=== PATIENT | female | born 1965 | race Caucasian/White ===

== ENCOUNTER → 2016-05-12 | Outpatient (CLI) | payer OTHER ==
[~2016-05-12] MED LIST: CALCIUM500 MG PO; CARAFATE1 G1 PO; CYMBALTA60 MG; DAYPRO600 M1 PO; ESSENTIAL DAIL1 EACH PO; FLAGYL500 MG PO; FLEXERIL10 MG; FLEXERIL5 MG PO; IBUPROFEN 30 M800 MG; IMITREX100 MG PO; INDERAL LA120 M1 PO; INDERAL80 MG PO; LASIX40 MG PO; LEVOTHYROXIN0.025 MG PO; LIPITOR20 MG PO; LISINOPRIL10 M1 PO; MOTRIN800 MG PO; PREMARIN0.625 MG; PRILOSEC10 MG PO; TOPAMAX50 MG PO; TRAMADOL HCL50 MG PO; TYLENOL W/CODEI1 TA2 PO; VICODIN 500 MG-1 TAB PO; WELLBUTRIN75 MG PO; XANAX0.25 MG PO; ZOFRAN ODT4 MG SL; ZOFRAN4 MG PO; ZOLOFT100 MG
== END | disposition home or self-care (01) ==
LOC: CARD 09:11
DX: R00.2 Palpitations (principal)

== ENCOUNTER → 2016-05-18 | Outpatient (CLI) | payer OTHER ==
[~2016-05-18] MED LIST changes: +CYCLOBENZAPRINE10 MG PO; +EC NAPROSYN500 MG PO; +TOPAMAX25 M3 PO; +TYLENOL325 M1 PO; +WELLBUTRIN XL150 MG PO; +XANAX1 MG PO
--- NOTE | ~2016-05-18 | ST ---
[place], [place] EXERCISE STRESS TEST REPORT NAME: JUSTINE MACEDO UNIT #: [id number] ROOM: DOCTOR: RAIMUNDO SANZ MD BIRTHDATE: [birth year] DOS: 05/18/2016 LEXISCAN STRESS TEST REPORT REASON FOR TEST: Palpitations and abnormal EKG. The patient had ST downsloping in V3-V5, normal sinus rhythm. PHARMACOLOGICAL STRESS TEST: The patient was given Lexiscan 0.4 mg over 10 seconds followed by nuclear injection at 40 seconds, then followed by completion of the test. Then exercise data, baseline heart rate was 70, blood pressure 120/70. Heart rate at 2 minutes was 86, blood pressure 110/68. Then EKG data, baseline rhythm was normal sinus rhythm with T-wave inversions in V3-V5. Then, stress ST changes, ST downsloping V3-V5, nondiagnostic. Then clinical symptoms, the patient had no chest pain or shortness of breath. IMPRESSION: 1. Normal Lexiscan stress test. 2. Wait for Cardiolite images for full report. RAIMUNDO SANZ MD CM:STRESS:EXERCISE STRESS TEST REPORT [id number] RAIMUNDO SANZ MD
== END | disposition home or self-care (01) ==
LOC: CARD 05-04 02:41
DX: R00.2 Palpitations (principal)

== ENCOUNTER → 2016-06-16 | Outpatient (CLI) | payer OTHER ==
[2016-06-16 11:36] LABS: BASO # 0.1 10*3/uL (0.0-0.1); BASO % 1.1 % (0.0-1.0); EOS # 0.2 10*3/uL (0.0-0.4); EOS % 2.6 % (1.0-4.0); HEMATOCRIT 39.8 % (37.0-47.0); HEMOGLOBIN 12.5 g/dl (12.0-16.0); LYMPH # 1.8 10*3/uL (1.3-4.4); LYMPH % 27.7 % (27.0-41.0); MEAN CELL VOLUME 88.4 fl (81.0-99.0); MEAN CORPUSCULAR HGB 27.8 pg (27.0-31.0); MEAN CORPUSCULAR HGB CONC 31.4 g/dl (33.0-37.0); MEAN PLATELET VOLUME 9.3 fl (9.6-12.3); MONO # 0.4 10*3/uL (0.1-1.0); MONO % 6.7 % (3.0-9.0); NEUT # 4.1 10*3/uL (2.3-7.9); NEUT % 61.7 % (47.0-73.0); PLATELET COUNT AUTOMATED 323 10*3/uL (130-400); RED CELL DISTRI WIDTH 14.7 % (0-14.5); WHITE BLOOD COUNT 6.6 10*3/uL (4.8-10.8)
== END | disposition home or self-care (01) ==
LOC: LAB 10:58
PROVIDERS: Internal Medicine Cardiovascular Disease
DX: R00.0 Tachycardia, unspecified (principal); R00.2 Palpitations; E78.01 Familial hypercholesterolemia; R94.31 Abnormal electrocardiogram [ECG] [EKG]

== ENCOUNTER → 2016-06-23 | Outpatient (CLI) | payer OTHER | END | disposition home or self-care (01) | LOC: CARD 07:19 | DX: I08.1 Rheumatic disorders of both mitral and tricuspid valves (principal); R94.31 Abnormal electrocardiogram [ECG] [EKG]; E78.01 Familial hypercholesterolemia ==

== ENCOUNTER 2016-08-30 15:38 | Emergency (ER) | payer OTHER ==
[~2016-08-30] VITALS: Ht 172.7 cm; Wt 88.5 kg
[2016-08-30 15:55] VITALS: BP 117/85
[2016-08-30] MEDS ORDERED: ROBITUSSIN AC 110 ML PO (16:29)
[2016-08-30] MEDS ORDERED: FLONASE ALLERG9.9 ML NAS ×2 (16:29→16:37)
[2016-08-30] MEDS ORDERED: CLARITIN10 MG PO ×2 (16:29→16:37)
== END 2016-08-30 17:02 | disposition home or self-care (01) ==
LOC: ED 15:38
DX: B34.9 Viral infection, unspecified (principal); R09.81 Nasal congestion; Z88.0 Allergy status to penicillin; Z79.899 Other long term (current) drug therapy

== ENCOUNTER 2017-07-17 03:49 | Emergency (ER) | payer OTHER ==
[~2017-07-17] VITALS: Ht 172.7 cm; Wt 79.4 kg
[~2017-07-17 03:49] MED LIST changes: +CLARITIN10 MG PO; +FLONASE ALLERG9.9 ML NAS; +ROBITUSSIN AC 110 ML PO
[2017-07-17 03:55] VITALS: BP 142/63
[2017-07-17] MEDS ORDERED: CIPRO500 MG PO (04:08)
[2017-07-17] MEDS ORDERED: Motrin,Rufen800 MG PO (04:08)
== END 2017-07-17 04:20 | disposition home or self-care (01) ==
LOC: ED 03:49
DX: H66.92 Otitis media, unspecified, left ear (principal); H60.92 Unspecified otitis externa, left ear; Z90.710 Acquired absence of both cervix and uterus; J02.9 Acute pharyngitis, unspecified; Z79.899 Other long term (current) drug therapy; Z88.0 Allergy status to penicillin

== ENCOUNTER 2017-12-24 10:58 | Emergency (ER) | payer OTHER ==
[~2017-12-24] VITALS: Ht 170.1 cm; Wt 80.7 kg
[~2017-12-24 10:58] MED LIST changes: +ASPIRIN ADULT L81 M1 PO; +BUPROPION HCL150 M2 PO; +CIPRO500 MG PO; +FLECAINIDE ACET50 M1 PO; +INDERAL XL120 MG PO; +KLOR-CON SPRIN10 MEQ PO; -LEVOTHYROXIN0.025 MG PO; +Motrin,Rufen800 MG PO; +OMEPRAZOLE20 M2 PO; +PREMARIN0.625 M1 PO; +SYNTHROID25 MCG PO; +VITAMIN D-32000 UNIT PO; +XARE20MG PO; +ZESTORETIC 10-1 EACH PO
[2017-12-24 11:00] VITALS: BP 140/91
[2017-12-24 11:19] LABS: BILIRUBIN NEGATIVE (NEGATIVE); BLOOD NEGATIVE (NEGATIVE); CLARITY CLEAR (CLEAR); COLOR YELLOW (YELLOW); GLUCOSE NEGATIVE (NEGATIVE); KETONE NEGATIVE (NEGATIVE); LEUKO ESTERASE 1+ (NEGATIVE); NITRITE NEGATIVE (NEGATIVE); PH 6.5 (5.0-9.0); UROBILINOGEN 0.2 E.U./dl (0.2-1.0)
[2017-12-24 11:34] LABS: BACTERIA 1+; EPITHELIAL CELLS 16-20; WBC 31-40 wbc/hpf (0-5)
[2017-12-24] MEDS ORDERED: LEVOFLOXACIN500 MG PO (13:47)
[2017-12-24] MEDS ORDERED: Motrin,Rufen800 MG PO (13:47)
[2017-12-31] MEDS ORDERED: LASIX20 MG PO (19:47)
[2017-12-31] MEDS ORDERED: XANAX0.25 MG PO (19:48)
[2018-01-04] MEDS ORDERED: AVPAK AZITHROM250 M1 PO (13:08)
[2018-01-04] MEDS ORDERED: PREDNISONE10 MG PO (13:08)
== END 2017-12-24 14:08 | disposition home or self-care (01) ==
LOC: ED 10:58
PROVIDERS: Emergency Medicine
DX: N12 Tubulo-interstitial nephritis, not specified as acute or chronic (principal); K21.9 Gastro-esophageal reflux disease without esophagitis; E03.9 Hypothyroidism, unspecified; E78.5 Hyperlipidemia, unspecified; M85.80 Other specified disorders of bone density and structure, unspecified site; Z88.0 Allergy status to penicillin; Z88.8 Allergy status to other drugs, medicaments and biological substances; Z79.899 Other long term (current) drug therapy; Z79.82 Long term (current) use of aspirin

== ENCOUNTER 2018-07-16 09:32 | Emergency (ER) | payer OTHER ==
[~2018-07-16] VITALS: Ht 172.7 cm; Wt 81.6 kg
[~2018-07-16 09:32] MED LIST changes: +AVPAK AZITHROM250 M1 PO; +LASIX20 MG PO; +LEVOFLOXACIN500 MG PO; +PREDNISONE10 MG PO
[2018-07-16 09:33] VITALS: BP 123/83
[2018-07-16] MEDS ORDERED: FLONASE ALLERG9.9 ML NAS (10:00)
== END 2018-07-16 10:10 | disposition home or self-care (01) ==
LOC: ED 09:32
DX: J06.9 Acute upper respiratory infection, unspecified (principal); K21.9 Gastro-esophageal reflux disease without esophagitis; E78.5 Hyperlipidemia, unspecified; E03.9 Hypothyroidism, unspecified; M85.80 Other specified disorders of bone density and structure, unspecified site; Z79.899 Other long term (current) drug therapy; Z79.82 Long term (current) use of aspirin; Z88.0 Allergy status to penicillin; Z88.8 Allergy status to other drugs, medicaments and biological substances

== ENCOUNTER → 2019-01-08 | Outpatient (CLI) | payer OTHER ==
[~2019-01-08] MED LIST changes: +DICYCLOMINE HCL10 MG PO; +OMEPRAZOLE40 MG PO; +TOPROL XL25 MG PO
--- NOTE | ~2019-01-08 | EKG ---
[place], [place] ELECTROCARDIOGRAM REPORT NAME: JUSTINE MACEDO UNIT #: [id number] ROOM: DOCTOR: RAIMUNDO SANZ MD BIRTHDATE: [birth year] DOS: 01/12/2019 48-HOUR HOLTER REPORT NARRATIVE SUMMARY: A Holter monitor was done for 47 hours and 59 minutes. Average heart rate was 95 beats per minute. The minimum heart rate was 71 beats per minute and maximum heart rate was 146 beats per minute. Ventricular ectopic activity consisted of 8 beats of which 4 were in couplets, 2 were in single PVCs and 2 were single ventricular ectopics. The patient's rhythm included 13 hours and 55 minutes of tachycardia, the fastest episode lasted 42 minutes and maximum heart rate was 148 beats per minute. Supraventricular activity consisted of 621 beats of which 9 were in two runs, 2 were in atrial couplets and one was late beat, 609 were single PACs. The longest supraventricular run consisted of 5 beats with maximum heart rate of 133 beats per minute. The fastest supraventricular run consisting of 4 beats with maximum heart rate of 140 beats per minute. IMPRESSION: The patient does have symptomatic supraventricular tachycardia. She was symptomatic when her heart rate was high and the patient will definitely benefit from beta keshawn, will start beta keshawn on next visit. RAIMUNDO SANZ MD CM:EKGRPT:ELECTROCARDIOGRAM REPORT [id number] RAIMUNDO SANZ MD
== END | disposition home or self-care (01) ==
LOC: CARD 08:00
DX: R00.0 Tachycardia, unspecified (principal)

== ENCOUNTER → 2019-01-17 | Day surgery (SDC) | payer OTHER ==
[~2019-01-17] VITALS: Ht 172.7 cm; Wt 86.2 kg
[2019-01-17 07:10] VITALS: BP 125/81
[2019-01-17 08:32] VITALS: BP 115/72
[2019-01-17 08:47] VITALS: BP 104/68
[2019-01-17 09:02] VITALS: BP 98/66
== END | disposition home or self-care (01) ==
LOC: SDC 01-08 14:00
DX: K59.00 Constipation, unspecified (principal); K29.50 Unspecified chronic gastritis without bleeding; I10 Essential (primary) hypertension; E03.9 Hypothyroidism, unspecified; G43.909 Migraine, unspecified, not intractable, without status migrainosus; I48.91 Unspecified atrial fibrillation; K44.9 Diaphragmatic hernia without obstruction or gangrene; K21.9 Gastro-esophageal reflux disease without esophagitis; F32.9 Major depressive disorder, single episode, unspecified; Z98.890 Other specified postprocedural states; Z88.0 Allergy status to penicillin; Z79.899 Other long term (current) drug therapy; Z83.3 Family history of diabetes mellitus; Z82.49 Family history of ischemic heart disease and other diseases of the circulatory system; Z80.8 Family history of malignant neoplasm of other organs or systems

== ENCOUNTER 2019-02-12 19:43 | Inpatient (IN) | payer OTHER ==
[~2019-02-12] VITALS: Ht 170.2 cm; Wt 85.4 kg
[2019-02-12 19:52] VITALS: BP 139/88
[2019-02-12 20:14] LABS: BASO # 0.1 10*3/uL (0.0-0.1); BASO % 0.8 % (0.0-1.0); EOS # 0.1 10*3/uL (0.0-0.4); EOS % 1.6 % (1.0-4.0); HEMATOCRIT 43.4 % (37.0-47.0); HEMOGLOBIN 13.8 g/dl (12.0-16.0); LYMPH # 1.8 10*3/uL (1.3-4.4); LYMPH % 23.1 % (27.0-41.0); MEAN CELL VOLUME 85.4 fl (81.0-99.0); MEAN CORPUSCULAR HGB 27.2 pg (27.0-31.0); MEAN CORPUSCULAR HGB CONC 31.8 g/dl (33.0-37.0); MEAN PLATELET VOLUME 9.8 fl (9.6-12.3); MONO # 0.6 10*3/uL (0.1-1.0); NEUT # 5.3 10*3/uL (2.3-7.9); NEUT % 66.4 % (47.0-73.0); PLATELET COUNT AUTOMATED 406 10*3/uL (130-400); RED BLOOD COUNT 5.08 10*6/uL (4.10-5.10); RED CELL DISTRI WIDTH 14.6 % (0-14.5)
[2019-02-12 20:25] LABS: ACT PARTIAL THROMBO TIME 25.4 SECONDS (20.0-32.1); INTERNATIONAL NORM RATIO 0.9 (2.0-3.5)
[2019-02-12 20:30] VITALS: BP 140/62
[2019-02-12 20:34] LABS: ALBUMIN 3.9 gm/dl (3.1-4.5); ALKALINE PHOSPHATASE 107 U/L (45-117); BUN 15 mg/dl (7-24); CHLORIDE 107 mmol/L (98-107); CREATININE 0.95 mg/dL (0.55-1.02); POTASSIUM 3.8 mmol/L (3.5-5.1); SGOT/AST 30 IU/L (3-35); SGPT/ALT 44 U/L (12-78); SODIUM 139 mmol/L (136-145); TOTAL PROTEIN 8.2 gm/dL (6.4-8.2)
[2019-02-12 20:39] LABS: TROPONIN I < 0.015 ng/ml (<0.045)
[2019-02-12 22:00] VITALS: BP 135/78
[2019-02-12 23:16] VITALS: BP 149/73
--- NOTE | 2019-02-12 23:16 | NUR ---
A 53, admitted to 4E, under the services of Dr. YVON DHILLON,[facility] with a diagnosis of ATYPICAL CHEST PAIN. Chief complaint is PALPITATIONS AND LEFT ARM NUMBNESS. Patient arrived via bed from ER. Monitor applied. Initial assessment completed. Vital signs taken and recorded. DR. COURTNEY HARVEY notified of admission to the unit. Orders received. See assessment for past medical history, medications and allergies. Patient and/or family oriented to . visitation policy reviewed. Clothing/patient valuable form completed. EMA WU RN
[2019-02-13] VITALS: BP 149/73
--- NOTE | 2019-02-13 04:10 | NUR ---
PATIENT RESTING IN BED IN A POSITION OF COMFORT, WATCHING TELEVISION, DENIES ANY CHEST PAIN/PRESSURE OR DYSPNEA AT THIS TIME. CALL LIGHT WITHIN REACH, WILL CONTINUE TO MONITOR.
[2019-02-13 07:05] LABS: BUN 17 mg/dl (7-24); CHLORIDE 107 mmol/L (98-107); CREATININE 0.81 mg/dL (0.55-1.02); FREE T4 1.02 ng/dl (0.76-1.46); PHOSPHOROUS 3.1 mg/dL (2.5-4.9); POTASSIUM 3.8 mmol/L (3.5-5.1); SODIUM 138 mmol/L (136-145)
[2019-02-13 07:12] LABS: BASO # 0.1 10*3/uL (0.0-0.1); BASO % 0.9 % (0.0-1.0); EOS # 0.1 10*3/uL (0.0-0.4); EOS % 2.5 % (1.0-4.0); HEMATOCRIT 43.5 % (37.0-47.0); HEMOGLOBIN 13.7 g/dl (12.0-16.0); LYMPH # 1.5 10*3/uL (1.3-4.4); LYMPH % 25.9 % (27.0-41.0); MEAN CELL VOLUME 86.3 fl (81.0-99.0); MEAN CORPUSCULAR HGB 27.2 pg (27.0-31.0); MEAN CORPUSCULAR HGB CONC 31.5 g/dl (33.0-37.0); MEAN PLATELET VOLUME 9.4 fl (9.6-12.3); MONO # 0.5 10*3/uL (0.1-1.0); MONO % 8.8 % (3.0-9.0); NEUT # 3.5 10*3/uL (2.3-7.9); NEUT % 61.7 % (47.0-73.0); PLATELET COUNT AUTOMATED 326 10*3/uL (130-400); RED BLOOD COUNT 5.04 10*6/uL (4.10-5.10); RED CELL DISTRI WIDTH 14.7 % (0-14.5); WHITE BLOOD COUNT 5.7 10*3/uL (4.8-10.8)
[2019-02-13 08:00] VITALS: BP 138/82
[2019-02-13 12:00] VITALS: BP 153/84
--- NOTE | 2019-02-13 12:06 | NUR ---
Finished Metal Repairer in to talk to patient. Patient states lives at home with . There are few steps in the home. Physician: haroon Pharmacy: [facility] [place] health services: none Patient's level of ADLs: INDEPENDENT Patient has working utilities: all working DME: none Follow-up physician's appointment after d/c: patient would like to make her own appointment Does patient want to access PORTAL?: no Discharge plan discussed with patient, she lives at home with , she is independent in adls and ambulation, she states she will return home when medically stable and denies any home needs, was present and agreed with patient. JUSTINE GEORGE
[2019-02-13 16:00] VITALS: BP 141/81
--- NOTE | 2019-02-13 16:00 | NUR ---
PATIENT RELAXED, LYING IN BED WITH NO COMPLAINTS. DENIES ANY DIZZINESS AT THIS TIME, NO CHEST PAIN OR SOB. CALL LIGHT WITHIN REACH.
[2019-02-13 20:00] VITALS: BP 129/71
[2019-02-14] VITALS: BP 140/78
[2019-02-14 12:00] VITALS: BP 120/74
[2019-02-14 16:00] VITALS: BP 120/74; BP 132/81
[2019-02-14] MEDS ORDERED: ASPIRIN CHEWABL81 MG PO (16:29)
[2019-02-14] MEDS ORDERED: METOPROLOL SUCC50 M1 PO (16:29)
[2019-02-14] MEDS ORDERED: LIPITOR20 MG PO (16:35)
--- NOTE | 2019-02-14 17:49 | NUR ---
PT DISCHARGED HOME. HEPLOCK AND PHYSICIAN RELATIONS MANAGER DC'D.
== END 2019-02-14 17:37 | disposition home or self-care (01) | DRG 203 ==
LOC: ED 19:43 → EDHOLD 22:36 → ED 22:36 → 4E 23:04 → EDHOLD 23:04 → 4E 02-13 00:10
PROVIDERS: Emergency Medicine; Internal Medicine; ADMIT Internal Medicine
DX: R07.89 Other chest pain (principal); E03.9 Hypothyroidism, unspecified; E78.5 Hyperlipidemia, unspecified; K21.9 Gastro-esophageal reflux disease without esophagitis; F41.9 Anxiety disorder, unspecified; F32.9 Major depressive disorder, single episode, unspecified; J44.9 Chronic obstructive pulmonary disease, unspecified; R73.9 Hyperglycemia, unspecified; I48.0 Paroxysmal atrial fibrillation; Z90.49 Acquired absence of other specified parts of digestive tract; Z90.710 Acquired absence of both cervix and uterus; Z83.3 Family history of diabetes mellitus; Z82.49 Family history of ischemic heart disease and other diseases of the circulatory system; Z88.0 Allergy status to penicillin; Z88.8 Allergy status to other drugs, medicaments and biological substances; Z79.899 Other long term (current) drug therapy

== ENCOUNTER 2019-08-03 15:09 | Inpatient (IN) | payer OTHER ==
[2019-08-03] VITALS (7 sets, daily range): BP systolic 100–130; BP diastolic 64–81
[~2019-08-03] VITALS: Ht 170.1 cm; Wt 77.3 kg
[~2019-08-03 15:09] MED LIST changes: +ASPIRIN CHEWABL81 MG PO; +METOPROLOL SUCC50 M1 PO
[2019-08-03 16:49] LABS: BASO # 0.1 10*3/uL (0.0-0.1); EOS # 0.1 10*3/uL (0.0-0.4); EOS % 1.9 % (1.0-4.0); HEMATOCRIT 42.9 % (37.0-47.0); LYMPH # 1.8 10*3/uL (1.3-4.4); LYMPH % 26.1 % (27.0-41.0); MEAN CELL VOLUME 89.4 fl (81.0-99.0); MEAN CORPUSCULAR HGB 27.7 pg (27.0-31.0); MEAN PLATELET VOLUME 9.7 fl (9.6-12.3); MONO # 0.5 10*3/uL (0.1-1.0); MONO % 6.7 % (3.0-9.0); NEUT # 4.4 10*3/uL (2.3-7.9); NEUT % 64.2 % (47.0-73.0); PLATELET COUNT AUTOMATED 332 10*3/uL (130-400); RED CELL DISTRI WIDTH 15.3 % (0-14.5); WHITE BLOOD COUNT 6.9 10*3/uL (4.8-10.8)
[2019-08-03 16:56] LABS: BILIRUBIN 1+ (NEGATIVE); BLOOD NEGATIVE (NEGATIVE); CLARITY SL CLOUDY (CLEAR); COLOR YELLOW (YELLOW); GLUCOSE NEGATIVE (NEGATIVE); KETONE NEGATIVE (NEGATIVE); LEUKO ESTERASE 2+ (NEGATIVE); NITRITE NEGATIVE (NEGATIVE); SPECIFIC GRAVITY 1.025 (1.005-1.030); UROBILINOGEN 0.2 E.U./dl (0.2-1.0)
[2019-08-03 17:00] LABS: BACTERIA 3+; EPITHELIAL CELLS TNTC; MUCOUS 1+; WBC 31-40 wbc/hpf (0-5)
[2019-08-03 17:04] LABS: ACT PARTIAL THROMBO TIME 24.9 SECONDS (20.0-32.1); ALKALINE PHOSPHATASE 91 U/L (45-117); BUN 17 mg/dl (7-24); CHLORIDE 107 mmol/L (98-107); CREATININE 1.08 mg/dL (0.55-1.02); LIPASE 196 U/L (73-393); POTASSIUM 3.6 mmol/L (3.5-5.1); SGOT/AST 16 IU/L (3-35); SGPT/ALT 34 U/L (12-78); SODIUM 138 mmol/L (136-145); TOTAL PROTEIN 8.4 gm/dL (6.4-8.2)
[2019-08-03 17:21] LABS: TROPONIN I < 0.015 ng/ml (<0.045)
[2019-08-03] MEDS ORDERED: WELLBUTRIN XL150 MG PO (18:33)
[2019-08-04] VITALS: BP 117/73
[2019-08-04 06:38] LABS: BASO # 0.1 10*3/uL (0.0-0.1); EOS # 0.1 10*3/uL (0.0-0.4); EOS % 2.4 % (1.0-4.0); LYMPH # 1.6 10*3/uL (1.3-4.4); LYMPH % 26.9 % (27.0-41.0); MEAN CELL VOLUME 87.2 fl (81.0-99.0); MEAN CORPUSCULAR HGB 27.5 pg (27.0-31.0); MEAN CORPUSCULAR HGB CONC 31.6 g/dl (33.0-37.0); MEAN PLATELET VOLUME 10.1 fl (9.6-12.3); MONO # 0.5 10*3/uL (0.1-1.0); MONO % 8.1 % (3.0-9.0); NEUT # 3.6 10*3/uL (2.3-7.9); NEUT % 61.4 % (47.0-73.0); PLATELET COUNT AUTOMATED 287 10*3/uL (130-400); RED BLOOD COUNT 4.36 10*6/uL (4.10-5.10); RED CELL DISTRI WIDTH 15.1 % (0-14.5); WHITE BLOOD COUNT 5.8 10*3/uL (4.8-10.8)
[2019-08-04 06:58] LABS: ALBUMIN 3.3 gm/dl (3.1-4.5); ALKALINE PHOSPHATASE 77 U/L (45-117); BUN 14 mg/dl (7-24); CHLORIDE 109 mmol/L (98-107); CREATININE 0.88 mg/dL (0.55-1.02); POTASSIUM 3.4 mmol/L (3.5-5.1); SGOT/AST 19 IU/L (3-35); SGPT/ALT 27 U/L (12-78); SODIUM 139 mmol/L (136-145); TOTAL PROTEIN 7.1 gm/dL (6.4-8.2)
[2019-08-04 08:00] VITALS: BP 100/65
[2019-08-04 12:00] VITALS: BP 110/58
[2019-08-04 16:00] VITALS: BP 95/54
[2019-08-04 20:00] VITALS: BP 103/68
[2019-08-05] VITALS: BP 108/59
[2019-08-05 08:00] VITALS: BP 121/70
[2019-08-05 12:00] VITALS: BP 110/60
[2019-08-05 16:00] VITALS: BP 114/67
[2019-08-05 20:00] VITALS: BP 119/70
[2019-08-06] VITALS: BP 133/78
[2019-08-06 07:16] LABS: BASO # 0.1 10*3/uL (0.0-0.1); EOS # 0.1 10*3/uL (0.0-0.4); EOS % 2.8 % (1.0-4.0); HEMATOCRIT 34.6 % (37.0-47.0); LYMPH # 1.3 10*3/uL (1.3-4.4); MEAN CELL VOLUME 87.4 fl (81.0-99.0); MEAN CORPUSCULAR HGB 27.8 pg (27.0-31.0); MEAN CORPUSCULAR HGB CONC 31.8 g/dl (33.0-37.0); MEAN PLATELET VOLUME 9.7 fl (9.6-12.3); MONO # 0.4 10*3/uL (0.1-1.0); MONO % 7.5 % (3.0-9.0); NEUT # 3.2 10*3/uL (2.3-7.9); NEUT % 63.5 % (47.0-73.0); PLATELET COUNT AUTOMATED 257 10*3/uL (130-400); RED BLOOD COUNT 3.96 10*6/uL (4.10-5.10); RED CELL DISTRI WIDTH 15.1 % (0-14.5); WHITE BLOOD COUNT 5.1 10*3/uL (4.8-10.8)
[2019-08-06 07:42] LABS: BUN 12 mg/dl (7-24); CHLORIDE 113 mmol/L (98-107); CREATININE 0.74 mg/dL (0.55-1.02); POTASSIUM 3.4 mmol/L (3.5-5.1); SODIUM 142 mmol/L (136-145)
[2019-08-06 08:00] VITALS: BP 129/74
[2019-08-06 12:00] VITALS: BP 121/69
== END 2019-08-06 15:40 | disposition home or self-care (01) | DRG 52 ==
LOC: ED 15:09 → 4E 19:09 → EDHOLD 19:09 → 4E 19:12
PROVIDERS: Nurse Practitioner Family; ADMIT Internal Medicine
DX: G93.40 Encephalopathy, unspecified (principal); N30.00 Acute cystitis without hematuria; R55 Syncope and collapse; M85.80 Other specified disorders of bone density and structure, unspecified site; E78.5 Hyperlipidemia, unspecified; I95.9 Hypotension, unspecified; K58.9 Irritable bowel syndrome, unspecified; E86.0 Dehydration; I48.92 Unspecified atrial flutter; E03.9 Hypothyroidism, unspecified; K21.9 Gastro-esophageal reflux disease without esophagitis; F41.9 Anxiety disorder, unspecified; F32.9 Major depressive disorder, single episode, unspecified; E55.9 Vitamin D deficiency, unspecified; M81.0 Age-related osteoporosis without current pathological fracture; G43.909 Migraine, unspecified, not intractable, without status migrainosus; R73.03 Prediabetes; I48.91 Unspecified atrial fibrillation; Z88.0 Allergy status to penicillin; Z88.8 Allergy status to other drugs, medicaments and biological substances; Z98.891 History of uterine scar from previous surgery; Z90.710 Acquired absence of both cervix and uterus; Z90.49 Acquired absence of other specified parts of digestive tract; Z82.49 Family history of ischemic heart disease and other diseases of the circulatory system; Z83.3 Family history of diabetes mellitus; Z80.8 Family history of malignant neoplasm of other organs or systems; Z79.82 Long term (current) use of aspirin; Z79.899 Other long term (current) drug therapy

== ENCOUNTER 2019-09-18 16:24 | Observation (INO) | payer OTHER ==
[~2019-09-18] VITALS: Ht 172.7 cm; Wt 76.9 kg
[2019-09-18 16:34] VITALS: BP 102/62
[2019-09-18 16:55] LABS: BASO # 0.1 10*3/uL (0.0-0.1); EOS # 0.1 10*3/uL (0.0-0.4); EOS % 1.6 % (1.0-4.0); LYMPH # 1.8 10*3/uL (1.3-4.4); LYMPH % 22.1 % (27.0-41.0); MEAN CELL VOLUME 83.3 fl (81.0-99.0); MEAN CORPUSCULAR HGB 27.1 pg (27.0-31.0); MEAN CORPUSCULAR HGB CONC 32.6 g/dl (33.0-37.0); MEAN PLATELET VOLUME 10.3 fl (9.6-12.3); MONO # 0.6 10*3/uL (0.1-1.0); MONO % 7.8 % (3.0-9.0); NEUT # 5.3 10*3/uL (2.3-7.9); NEUT % 67.2 % (47.0-73.0); PLATELET COUNT AUTOMATED 376 10*3/uL (130-400); RED BLOOD COUNT 5.16 10*6/uL (4.10-5.10); RED CELL DISTRI WIDTH 14.3 % (0-14.5); WHITE BLOOD COUNT 7.9 10*3/uL (4.8-10.8)
[2019-09-18 17:15] LABS: ALBUMIN 4.1 gm/dl (3.1-4.5); ALKALINE PHOSPHATASE 103 U/L (45-117); BUN 37 mg/dl (7-24); CHLORIDE 98 mmol/L (98-107); CREATININE 1.55 mg/dL (0.55-1.02); LIPASE 206 U/L (73-393); POTASSIUM 4.6 mmol/L (3.5-5.1); SGOT/AST 57 IU/L (3-35); SGPT/ALT 39 U/L (12-78); SODIUM 134 mmol/L (136-145)
[2019-09-18 17:16] LABS: TROPONIN I < 0.015 ng/ml (<0.045)
[2019-09-18 17:18] LABS: ACT PARTIAL THROMBO TIME 23.8 SECONDS (20.0-32.1)
[2019-09-18 17:46] VITALS: BP 97/58
[2019-09-18 18:03] VITALS: BP 100/61
[2019-09-18 19:30] VITALS: BP 109/70
[2019-09-18 19:40] VITALS: BP 100/63; BP 112/79
--- NOTE | 2019-09-18 19:40 | NUR ---
A 54, admitted to 5E, under the services of RAIMUNDO Reid MD with a diagnosis of ORTHOSTATIC HYPOTENSION, SYNCOPE, CHEST PAIN R/O DE. Chief complaint is DIZZINESS. Patient arrived via stretcher from ER. Monitor applied. Initial assessment completed. Vital signs taken and recorded. RAIMUNDO REID MD notified of admission to the unit. Orders received. See assessment for past medical history, medications and allergies. Patient and/or family oriented to unit. [facility] visitation policy reviewed. Clothing/patient valuable form completed. MYRIAM GRAHAM
[2019-09-18] MEDS ORDERED: LEVOTHYROXINE50 MCG PO (19:53)
[2019-09-18] MEDS ORDERED: ATORVASTATIN CA80 M1 PO (19:56)
[2019-09-18] MEDS ORDERED: SERTRALINE HYD100 MG PO (19:57)
--- NOTE | 2019-09-18 19:59 | NUR ---
MED REC UP TO DATE PER PT RECALL.
--- NOTE | 2019-09-18 20:21 | NUR ---
CALLED REGARDING CONSULT. NEW ORDERS RECEIVED. ALSO REVIEWED HOME MEDICATIONS. INSTRUCTED TO HOLD DICYCLOMINE AND ALL OTHER HOME MEDS OKAY FROM 'S STANDPOINT.
--- NOTE | 2019-09-18 21:04 | NUR ---
NOTIFIED OF BP LOW AND POSITIVE ORTHOS. AWARE 2200 DOSE OF METOPROLOL BEING HELD. INSTRUCTED TO MONITOR HR.
[2019-09-18 21:49] LABS: CLARITY CLEAR (CLEAR); COLOR YELLOW (YELLOW)
[2019-09-18 21:51] LABS: BILIRUBIN NEGATIVE (NEGATIVE); BLOOD NEGATIVE (NEGATIVE); GLUCOSE NEGATIVE (NEGATIVE); KETONE NEGATIVE (NEGATIVE); NITRITE NEGATIVE (NEGATIVE); PH 6.5 (5.0-9.0); SPECIFIC GRAVITY 1.025 (1.005-1.030); UROBILINOGEN 0.2 E.U./dl (0.2-1.0)
[2019-09-18 21:53] LABS: LEUKO ESTERASE 2+ (NEGATIVE)
[2019-09-18 22:01] LABS: WBC 16-20 wbc/hpf (0-5)
[2019-09-18 22:02] LABS: BACTERIA 1+
--- NOTE | 2019-09-18 22:40 | NUR ---
ORTHOS POSITIVE. MADE AWARE.
--- NOTE | 2019-09-18 23:58 | NUR ---
'S ANSWERING SERVICE CALLED REGARDING CONSULT. PT INFORMATION & CALL BACK NUMBER LEFT WITH METHODS ANALYST.
[2019-09-19] VITALS: BP 100/63
[2019-09-19 06:50] LABS: BASO % 0.6 % (0.0-1.0); EOS # 0.1 10*3/uL (0.0-0.4); EOS % 2.1 % (1.0-4.0); HEMATOCRIT 39.4 % (37.0-47.0); LYMPH % 29.3 % (27.0-41.0); MEAN CELL VOLUME 86.2 fl (81.0-99.0); MEAN CORPUSCULAR HGB 27.1 pg (27.0-31.0); MEAN CORPUSCULAR HGB CONC 31.5 g/dl (33.0-37.0); MEAN PLATELET VOLUME 10.7 fl (9.6-12.3); MONO # 0.6 10*3/uL (0.1-1.0); MONO % 9.2 % (3.0-9.0); NEUT # 3.9 10*3/uL (2.3-7.9); NEUT % 58.6 % (47.0-73.0); PLATELET COUNT AUTOMATED 313 10*3/uL (130-400); RED BLOOD COUNT 4.57 10*6/uL (4.10-5.10); RED CELL DISTRI WIDTH 14.4 % (0-14.5); WHITE BLOOD COUNT 6.7 10*3/uL (4.8-10.8)
[2019-09-19 07:26] LABS: CHLORIDE 102 mmol/L (98-107); SODIUM 139 mmol/L (136-145)
[2019-09-19 07:36] LABS: ACT PARTIAL THROMBO TIME 25.3 SECONDS (20.0-32.1)
[2019-09-19 07:38] LABS: ALBUMIN 3.5 gm/dl (3.1-4.5); ALKALINE PHOSPHATASE 94 U/L (45-117); BUN 34 mg/dl (7-24); CHOLESTEROL 196 mg/dL (<200); CREATININE 1.14 mg/dL (0.55-1.02); FREE T4 1.06 ng/dl (0.76-1.46); HDL CHOLESTEROL 43 mg/dl (40-60); LDL CHOLESTEROL 104 mg/dL (9-159); SGOT/AST 22 IU/L (3-35); SGPT/ALT 31 U/L (12-78); TOTAL PROTEIN 7.2 gm/dL (6.4-8.2); TRIGLYCERIDES 245 mg/dl (<150); VLDL CHOLESTEROL 49 mg/dL (6-40)
[2019-09-19 08:00] VITALS: BP 94/60
[2019-09-19 08:01] LABS: VITAMIN D, 25-HYDROXY 41.8 ng/mL (30-100)
--- NOTE | 2019-09-19 09:07 | NUR ---
PT RESTING IN B ED. PT CONT TO C/O DIZZINESS WILL MONITOR
--- NOTE | 2019-09-19 11:30 | NUR ---
Chief Underwriter in to talk to patient. Patient states lives at home with her . There are no steps in the home. Physician: Dr. Osvaldo Pickering [facility]acy: [facility] Home health services: none Patient's level of ADLs: INDEPENDENT Patient has working utilities: yes DME: none Follow-up physician's appointment after d/c: she prefers to make her own follow up appt on discharge Does patient want to access PORTAL?: no Discharge plan discussed with patient. She lives at home with her . She is independent in her ADLs and ambulation. Discussed home health care services and she declines. CM will continue to follow for any discharge planning needs. When medically stable she will be discharged to home. She states her will provide transportation on discharge. LINDSAY MALLORY
[2019-09-19 12:00] VITALS: BP 89/48
[2019-09-19 16:00] VITALS: BP 90/44
--- NOTE | 2019-09-19 19:00 | NUR ---
PT AWAKE IN BED. RESPIRATIONS EASY. NO S/S OF DISTRESS NOTED. WILL MONITOR. CALL LIGHT IN REACH.
[2019-09-19 20:00] VITALS: BP 97/59
[2019-09-20] VITALS: BP 112/60
--- NOTE | 2019-09-20 02:53 | NUR ---
IV ZOFRAN ADMINISTERED PER PRN ORDER FOR C/O NAUSEA WITHOUT EMESIS. WILL MONITOR. CALL LIGHT IN REACH.
--- NOTE | 2019-09-20 03:45 | NUR ---
EARLIER MEDICATION APPEARS EFFECTIVE. PT ASLEEP IN BED. NO S/S OF DISTRESS NOTED. WILL MONITOR. CALL LIGHT IN REACH.
[2019-09-20 07:27] LABS: CHLORIDE 113 mmol/L (98-107); SODIUM 143 mmol/L (136-145)
[2019-09-20 07:38] LABS: ALBUMIN 2.8 gm/dl (3.1-4.5); ALKALINE PHOSPHATASE 72 U/L (45-117); CREATININE 0.85 mg/dL (0.55-1.02); SGOT/AST 19 IU/L (3-35); SGPT/ALT 25 U/L (12-78); TOTAL PROTEIN 5.9 gm/dL (6.4-8.2)
[2019-09-20 07:44] LABS: BUN 23 mg/dl (7-24)
[2019-09-20 08:00] VITALS: BP 112/63
--- NOTE | 2019-09-20 09:00 | NUR ---
CM in to see patient. No new needs or request at this time. Discussed home health care services and she declines. CM will continue to follow for any discharge planning needs. When medically stable she will be discharged to home.
[2019-09-20 09:07] LABS: CREATININE,URINE 130.7 mg/dL (Not Estab.)
[2019-09-20 12:00] VITALS: BP 100/62
[2019-09-20] MEDS ORDERED: METOPROLOL SUCC25 M2 PO (14:13)
--- NOTE | 2019-09-20 14:55 | NUR ---
Discharge instructions reviewed with patient/family. Patient receptive and verbalizes understanding. Follow-up care arranged. Written instructions given to patient/family. DEANA HUIZAR
== END 2019-09-20 14:55 | disposition home or self-care (01) ==
LOC: ED 16:24 → 5E 18:01 → EDHOLD 18:01 → 5E 18:01
PROVIDERS: Emergency Medicine; Internal Medicine; Internal Medicine Nephrology; ADMIT Internal Medicine
DX: R55 Syncope and collapse (principal); E86.0 Dehydration; I95.1 Orthostatic hypotension; R07.89 Other chest pain; N17.0 Acute kidney failure with tubular necrosis; E87.1 Hypo-osmolality and hyponatremia; R73.9 Hyperglycemia, unspecified; R74.0 Nonspecific elevation of levels of transaminase and lactic acid dehydrogenase [LDH]; D72.810 Lymphocytopenia; R42 Dizziness and giddiness; E03.9 Hypothyroidism, unspecified; K21.9 Gastro-esophageal reflux disease without esophagitis; F32.9 Major depressive disorder, single episode, unspecified; K58.9 Irritable bowel syndrome, unspecified; M85.80 Other specified disorders of bone density and structure, unspecified site; E55.9 Vitamin D deficiency, unspecified

== ENCOUNTER 2019-11-02 17:29 | Emergency (ER) | payer OTHER ==
[~2019-11-02] VITALS: Wt 77.1 kg
[~2019-11-02 17:29] MED LIST changes: +ATORVASTATIN CA80 M1 PO; +LEVOTHYROXINE50 MCG PO; +METOPROLOL SUCC25 M2 PO; +SERTRALINE HYD100 MG PO
[2019-11-02 19:08] VITALS: BP 112/76
[2019-11-02] MEDS ORDERED: NAPROSYN500 MG PO (19:29)
== END 2019-11-02 17:44 | disposition home or self-care (01) ==
LOC: ED 17:29
DX: M25.511 Pain in right shoulder (principal); Z88.0 Allergy status to penicillin; Z88.8 Allergy status to other drugs, medicaments and biological substances; Z79.82 Long term (current) use of aspirin; Z79.899 Other long term (current) drug therapy

== ENCOUNTER → 2019-11-21 | Outpatient (CLI) | payer OTHER ==
[~2019-11-21] MED LIST changes: +NAPROSYN500 MG PO
== END | disposition home or self-care (01) ==
LOC: COVID19 00:33
PROVIDERS: ATTEND Internal Medicine Nephrology
DX: Z20.828 Contact with and (suspected) exposure to other viral communicable diseases (principal)

== ENCOUNTER → 2019-12-17 | Outpatient (CLI) | payer OTHER | END | disposition home or self-care (01) | LOC: US 12:23 | PROVIDERS: ATTEND Internal Medicine Nephrology | DX: R10.9 Unspecified abdominal pain (principal) ==

== ENCOUNTER → 2020-02-20 | Outpatient (CLI) | payer OTHER | END | disposition home or self-care (01) | LOC: RAD 11:04 | PROVIDERS: ATTEND Internal Medicine Nephrology | DX: M54.41 Lumbago with sciatica, right side (principal) ==

== ENCOUNTER 2020-05-05 17:51 | Emergency (ER) | payer OTHER ==
[~2020-05-05] VITALS: Ht 172.7 cm; Wt 77.1 kg
[2020-05-05 19:38] VITALS: BP 117/72
== END 2020-05-05 20:52 | disposition home or self-care (01) ==
LOC: ED 17:51
DX: S76.011A Strain of muscle, fascia and tendon of right hip, initial encounter (principal); Z98.890 Other specified postprocedural states; Z90.710 Acquired absence of both cervix and uterus; Z90.49 Acquired absence of other specified parts of digestive tract; Z79.899 Other long term (current) drug therapy; Z88.0 Allergy status to penicillin; Z88.8 Allergy status to other drugs, medicaments and biological substances; X50.1XXA Overexertion from prolonged static or awkward postures, initial encounter; Y93.89 Activity, other specified; Y92.89 Other specified places as the place of occurrence of the external cause; Y99.9 Unspecified external cause status

== ENCOUNTER 2020-07-03 14:07 | Emergency (ER) | payer OTHER ==
[~2020-07-03] VITALS: Ht 172.7 cm; Wt 79.4 kg
[2020-07-03 14:14] VITALS: BP 104/88
[2020-07-03] MEDS ORDERED: HYDROCODONE-AC1 EAC1 PO (15:53)
[2020-07-03] MEDS ORDERED: MEDROL DOSEPAK4 MG PO (15:53)
== END 2020-07-03 16:21 | disposition home or self-care (01) ==
LOC: ED 14:07
DX: S39.011A Strain of muscle, fascia and tendon of abdomen, initial encounter (principal); Z88.0 Allergy status to penicillin; Z88.8 Allergy status to other drugs, medicaments and biological substances; Z79.899 Other long term (current) drug therapy; Z79.82 Long term (current) use of aspirin; Z98.890 Other specified postprocedural states; Z90.49 Acquired absence of other specified parts of digestive tract; Z90.711 Acquired absence of uterus with remaining cervical stump; X50.9XXA Other and unspecified overexertion or strenuous movements or postures, initial encounter; Y93.89 Activity, other specified; Y92.89 Other specified places as the place of occurrence of the external cause; Y99.8 Other external cause status

== ENCOUNTER → 2020-07-07 | Outpatient (CLI) | payer OTHER ==
[~2020-07-07] MED LIST changes: +HYDROCODONE-AC1 EAC1 PO; +MEDROL DOSEPAK4 MG PO
== END | disposition home or self-care (01) ==
LOC: MRI 09:00
PROVIDERS: ATTEND Internal Medicine Nephrology
DX: M51.36 Other intervertebral disc degeneration, lumbar region (principal); M51.37 Other intervertebral disc degeneration, lumbosacral region; M43.16 Spondylolisthesis, lumbar region; M51.26 Other intervertebral disc displacement, lumbar region; M48.07 Spinal stenosis, lumbosacral region; M47.816 Spondylosis without myelopathy or radiculopathy, lumbar region

== ENCOUNTER 2020-08-11 10:34 | Emergency (ER) | payer OTHER ==
[~2020-08-11] VITALS: Wt 83.9 kg
[2020-08-11 10:54] VITALS: BP 113/67
== END 2020-08-11 15:19 | disposition home or self-care (01) ==
LOC: ED 10:34
DX: S63.602A Unspecified sprain of left thumb, initial encounter (principal); S66.912A Strain of unspecified muscle, fascia and tendon at wrist and hand level, left hand, initial encounter; M81.0 Age-related osteoporosis without current pathological fracture; Z88.0 Allergy status to penicillin; Z88.8 Allergy status to other drugs, medicaments and biological substances; Z79.82 Long term (current) use of aspirin; Z79.899 Other long term (current) drug therapy; Z98.890 Other specified postprocedural states; Z90.49 Acquired absence of other specified parts of digestive tract; Z90.711 Acquired absence of uterus with remaining cervical stump; Z90.89 Acquired absence of other organs; W01.0XXA Fall on same level from slipping, tripping and stumbling without subsequent striking against object, initial encounter; Y93.89 Activity, other specified; Y92.89 Other specified places as the place of occurrence of the external cause; Y99.8 Other external cause status

== ENCOUNTER 2020-11-11 08:12 | Emergency (ER) | payer OTHER ==
[~2020-11-11] VITALS: Ht 172.7 cm; Wt 83.9 kg
[2020-11-11 08:49] LABS: BASO # 0.1 10*3/uL (0.0-0.1); BASO % 1.1 % (0.0-1.0); EOS # 0.2 10*3/uL (0.0-0.4); EOS % 3.3 % (1.0-4.0); HEMATOCRIT 43.8 % (37.0-47.0); LYMPH # 1.6 10*3/uL (1.3-4.4); LYMPH % 21.7 % (27.0-41.0); MEAN CORPUSCULAR HGB 25.1 pg (27.0-31.0); MEAN CORPUSCULAR HGB CONC 30.6 g/dl (33.0-37.0); MEAN PLATELET VOLUME 9.5 fl (9.6-12.3); MONO # 0.7 10*3/uL (0.1-1.0); NEUT # 4.8 10*3/uL (2.3-7.9); NEUT % 64.6 % (47.0-73.0); PLATELET COUNT AUTOMATED 377 10*3/uL (130-400); RED BLOOD COUNT 5.34 10*6/uL (4.10-5.10); WHITE BLOOD COUNT 7.4 10*3/uL (4.8-10.8)
[2020-11-11 09:10] LABS: BILIRUBIN Negative (Negative); BLOOD Negative (Negative); CLARITY Cloudy (Clear); COLOR Yellow (Yellow); GLUCOSE Negative (Negative); KETONE 1+ (Negative); LEUKO ESTERASE 1+ (Negative); NITRITE Negative (Negative); PH 5.5 (4.5-8.0)
[2020-11-11 09:18] LABS: ALBUMIN 4.1 gm/dl (3.1-4.5); ALKALINE PHOSPHATASE 106 U/L (45-117); BUN 19 mg/dl (7-24); CHLORIDE 105 mmol/L (98-107); CREATININE 0.85 mg/dL (0.55-1.02); POTASSIUM 3.9 mmol/L (3.5-5.1); SGOT/AST 48 IU/L (3-35); SGPT/ALT 62 U/L (12-78); SODIUM 138 mmol/L (136-145); TOTAL PROTEIN 8.5 gm/dL (6.4-8.2)
[2020-11-11 09:19] LABS: BACTERIA 2+; CALCIUM OXALATE CRYSTALS 1+; RBC 0-2 rbc/hpf (0-2)
[2020-11-11 10:30] VITALS: BP 108/70
[2020-11-11] MEDS ORDERED: FLOMAX0.4 MG PO (11:06)
[2020-11-11] MEDS ORDERED: ZOFRAN4 MG PO (11:06)
[2020-11-11] MEDS ORDERED: TYLENOL325 M1 PO (11:06)
[2020-11-11] MEDS ORDERED: NAPROXEN250 MG PO (11:06)
== END 2020-11-11 11:20 | disposition home or self-care (01) ==
LOC: ED 08:12
PROVIDERS: Emergency Medicine
DX: K57.30 Diverticulosis of large intestine without perforation or abscess without bleeding (principal); N20.0 Calculus of kidney; K21.9 Gastro-esophageal reflux disease without esophagitis; E78.5 Hyperlipidemia, unspecified; E03.9 Hypothyroidism, unspecified; Z88.0 Allergy status to penicillin; Z88.8 Allergy status to other drugs, medicaments and biological substances; Z79.899 Other long term (current) drug therapy

== ENCOUNTER 2021-01-14 13:11 | Emergency (ER) | payer OTHER ==
[~2021-01-14] VITALS: Ht 172.7 cm; Wt 90.7 kg
[~2021-01-14 13:11] MED LIST changes: +FLOMAX0.4 MG PO; +NAPROXEN250 MG PO
[2021-01-14 14:04] LABS: BASO # 0.1 10*3/uL (0.0-0.1); BASO % 1.5 % (0.0-1.0); EOS # 0.3 10*3/uL (0.0-0.4); HEMATOCRIT 39.8 % (37.0-47.0); LYMPH # 1.1 10*3/uL (1.3-4.4); LYMPH % 20.9 % (27.0-41.0); MEAN CELL VOLUME 81.9 fl (81.0-99.0); MEAN CORPUSCULAR HGB 25.1 pg (27.0-31.0); MEAN CORPUSCULAR HGB CONC 30.7 g/dl (33.0-37.0); MEAN PLATELET VOLUME 9.2 fl (9.6-12.3); MONO # 0.5 10*3/uL (0.1-1.0); MONO % 9.3 % (3.0-9.0); NEUT # 3.4 10*3/uL (2.3-7.9); NEUT % 63.1 % (47.0-73.0); PLATELET COUNT AUTOMATED 326 10*3/uL (130-400); RED BLOOD COUNT 4.86 10*6/uL (4.10-5.10); RED CELL DISTRI WIDTH 17.2 % (0-14.5); WHITE BLOOD COUNT 5.4 10*3/uL (4.8-10.8)
[2021-01-14 14:24] LABS: ALBUMIN 3.6 gm/dl (3.1-4.5); ALKALINE PHOSPHATASE 99 U/L (45-117); BUN 17 mg/dl (7-24); CHLORIDE 107 mmol/L (98-107); CREATININE 0.89 mg/dL (0.55-1.02); POTASSIUM 3.9 mmol/L (3.5-5.1); SGOT/AST 21 IU/L (3-35); SGPT/ALT 36 U/L (12-78); SODIUM 137 mmol/L (136-145); TOTAL PROTEIN 8.1 gm/dL (6.4-8.2)
[2021-01-14 14:27] LABS: ACETAMINOPHEN (TYLENOL) < 5.0 ug/ml (10-30); ETHYL ALCOHOL < 3.0 mg/dl (<3)
[2021-01-14 15:09] LABS: BILIRUBIN Negative (Negative); BLOOD Negative (Negative); CLARITY Cloudy (Clear); COLOR Yellow (Yellow); GLUCOSE Negative (Negative); KETONE Negative (Negative); LEUKO ESTERASE 2+ (Negative); NITRITE Negative (Negative); UROBILINOGEN 0.2 E.U./dl (0.0-1.0)
[2021-01-14 15:16] LABS: BACTERIA TRACE; RBC 0-2 rbc/hpf (0-2); WBC 16-20 wbc/hpf (0-5)
[2021-01-14 15:18] LABS: URINE AMPHETAMINES < 1000 (1000ng/ml); URINE BARBITURATES < 200 (200ng/ml); URINE BENZODIAZEPINES < 200 (200ng/ml); URINE CANNABINOIDS (THC) < 50 (50ng/ml); URINE COCAINE < 300 (300ng/ml); URINE METHADONE < 300 (300ng/ml); URINE OPIATES < 300 (300ng/ml)
[2021-01-14 15:19] LABS: URINE PHENCYCLIDINE < 25 (25ng/ml)
[2021-01-14] MEDS ORDERED: MIDODRINE HCL2.5 MG PO (19:18)
[2021-01-14] MEDS ORDERED: XARELTO20 M1 PO (19:19)
[2021-01-14 20:44] VITALS: BP 105/64
== END 2021-01-14 21:15 ==
LOC: ED 13:11
PROVIDERS: Physician Assistant
DX: F32.9 Major depressive disorder, single episode, unspecified (principal); Z20.822 Contact with and (suspected) exposure to COVID-19; Z88.0 Allergy status to penicillin; Z88.8 Allergy status to other drugs, medicaments and biological substances; Z79.899 Other long term (current) drug therapy

== ENCOUNTER → 2021-03-10 | Outpatient (CLI) | payer OTHER ==
[~2021-03-10] MED LIST changes: +MIDODRINE HCL2.5 MG PO; +XARELTO20 M1 PO
== END | disposition home or self-care (01) ==
LOC: US 15:44
PROVIDERS: ATTEND Podiatrist
DX: M79.661 Pain in right lower leg (principal); M79.662 Pain in left lower leg; R60.0 Localized edema

== ENCOUNTER → 2021-03-17 | Outpatient (CLI) | payer OTHER | END | disposition home or self-care (01) | LOC: LAB 13:15 → CARD 14:00 | PROVIDERS: ATTEND Internal Medicine Nephrology | DX: I51.7 Cardiomegaly (principal); J98.4 Other disorders of lung; M79.89 Other specified soft tissue disorders ==

== ENCOUNTER → 2021-04-07 | Outpatient (CLI) | payer OTHER ==
[~2021-04-07] MED LIST changes: +LAMICTAL25 MG PO; +LATU40TA1 PO; -LEVOTHYROXINE50 MCG PO; +LEVOTHYROXINE75 MC1 PO; +MOBIC15 MG PO; +MULTI-VITAMIN1 EACH PO; +NEURONTIN300 MG PO; +POTASSIUM CHLO10 ME5 PO; +TYLENOL325 M2 PO; +VISTARIL25 MG PO; +VITAMIN C1000 M5 PO
== END ==
LOC: CARD 03-31 00:04
PROVIDERS: ATTEND Internal Medicine
DX: R07.9 Chest pain, unspecified (principal)

== ENCOUNTER → 2021-08-12 | Outpatient (CLI) | payer OTHER | END | disposition home or self-care (01) | LOC: CT 13:22 | PROVIDERS: ATTEND Internal Medicine Nephrology | DX: K57.30 Diverticulosis of large intestine without perforation or abscess without bleeding (principal); M47.816 Spondylosis without myelopathy or radiculopathy, lumbar region; Z87.442 Personal history of urinary calculi ==

== ENCOUNTER → 2021-10-07 | Outpatient (CLI) | payer OTHER | LOC: MAMMO 11:13 | PROVIDERS: ATTEND Internal Medicine Nephrology | DX: Z12.31 Encounter for screening mammogram for malignant neoplasm of breast (principal); N64.89 Other specified disorders of breast ==

== ENCOUNTER → 2023-03-23 | Outpatient (CLI) | payer OTHER | END | disposition home or self-care (01) | LOC: RAD 11:20 | PROVIDERS: ATTEND Internal Medicine Nephrology | DX: M43.17 Spondylolisthesis, lumbosacral region (principal); M54.50 Low back pain, unspecified ==

== ENCOUNTER → 2023-12-21 | Outpatient (CLI) | payer OTHER, MEDICAID | END | disposition home or self-care (01) | LOC: MAMMO 07:26 | PROVIDERS: ATTEND Internal Medicine Nephrology | DX: Z12.31 Encounter for screening mammogram for malignant neoplasm of breast (principal) ==

== ENCOUNTER → 2024-09-08 | Outpatient (CLI) | payer OTHER, MEDICAID | LOC: US 08:18 | PROVIDERS: ATTEND Internal Medicine Nephrology | DX: I73.9 Peripheral vascular disease, unspecified (principal) ==

== ENCOUNTER → 2024-10-11 | Outpatient (CLI) | payer OTHER, MEDICAID | LOC: RAD 15:36 | PROVIDERS: ATTEND Internal Medicine | DX: R19.5 Other fecal abnormalities (principal); R39.9 Unspecified symptoms and signs involving the genitourinary system; Z87.442 Personal history of urinary calculi; Z90.49 Acquired absence of other specified parts of digestive tract ==

== ENCOUNTER → 2025-01-03 | Outpatient (CLI) | payer OTHER, MEDICAID | END | disposition home or self-care (01) | LOC: LAB 09:59 → US 10:30 | PROVIDERS: ATTEND Internal Medicine Nephrology | DX: R74.8 Abnormal levels of other serum enzymes (principal); R73.09 Other abnormal glucose ==